=== PATIENT | male | born 1955 | race Caucasian/White ===

== ENCOUNTER 2025-05-17 12:07 | Emergency (ER) | payer MEDICARE ==
[~2025-05-17] VITALS: Ht 175.3 cm; Wt 88.2 kg
[2025-05-17 13:36] LABS: MEAN PLATELET VOLUME 7.4 FL (7.4-10.4); RED CELL DISTRIBUTION WIDTH 13.5 % (11.5-14.5)
[2025-05-17 13:49] LABS: CREATININE 0.74 MG/DL (0.60-1.10); TOTAL CARBON DIOXIDE 24.3 MMOL/L (24-32); eCRCL 96 ML/MIN; eGFR > 90 ML/MIN
[2025-05-17 14:42] VITALS: BP 166/93; PULSE 83; RESP 21; TEMP 98.3; O2SAT 97
--- NOTE | 2025-05-17 14:44 | Physician Documentation ---
History of Present Illness General Chief Complaint: Abdominal Pain Stated Complaint: ABD PAIN Time Seen by MD: 14:33 Mode of Arrival: Ambulatory, Dropped Off History of Present Illness Initial Comments The patient is a 62-year-old male who admits to heavy drinking and presents today with right upper quadrant pain. He has been dry heaving. His last drink was a beer this morning. He tried to quit drinking three weeks ago but his withdrawal symptoms became severe and he took it up again. Medication Reconciliation Allergies: Coded Allergies: No Known Allergies (Unverified , 05/17/25) Review of Systems ROS Constitutional: Denies chills, fatigue, fever, weight gain or weight loss. HEENT: Denies hearing loss, sinus pressure or visual changes. Respiratory: Denies cough, shortness of breath or wheezing. Cardiovascular: Denies chest pain, pain while walking (claudication), edema or palpitations. Gastrointestinal: Denies abdominal pain, blood in stool, constipation, diarrhea, heartburn, loss of appetite, nausea or vomiting. Genitourinary: Denies painful urination (dysuria), excessive amount of urine (polyuria) or urinary frequency. Metabolic/Endocrine: Denies cold intolerance, heat intolerance, excessive thirst (polydipsia) or excessive hunger (polyphagia). Neurological: Tremulous Psychiatric: Anxiety Integumentary: Denies breast discharge, breast lump, hives, mole change(s), rash or skin lesion. Musculoskeletal: Denies back pain, joint pain, joint swelling or neck pain. Hematologic: Denies easily bleeding, easily bruises, lymphedema or issues with blood clots. Immunologic: Denies food allergies or seasonal allergies. Physical Exam Physical Exam Vital Signs: Temperature: 98.3, Source: Oral, Heart Rate: 85, Respiratory Rate: 16, BP: 186/107, Pulse Oximetry: 98, Weight: 88.150 Oxygen Flow Rate: 0 Progress Results/Orders Results/Orders Orders - HUY FRANKLIN MD Ultrasound Of Abdomen (05/17/25 14:38) Lactic,2hr (05/17/25 16:17) Completed Orders - HUY FRANKLIN MD Cbc/Diff (05/17/25 13:14) BMP (05/17/25 13:14) Lipase (05/17/25 13:14) CMP (05/17/25 13:14) Ultrasound Of Abdomen (05/17/25 14:38) LA (05/17/25 14:39) Normal Saline 1000ml (Sodium Chloride 10 (05/17/25 14:40) Lorazepam Tablet (Ativan Tablet) (05/17/25 14:40) Ondansetron Inj. (Zofran 4mg/2ml Vial) (05/17/25 14:45) Ethanol (05/17/25 13:00) Ua W/Microscopic, Cult If Ind (05/17/25 15:36) Medications Received in ER Medications (Trade) Dose Ordered Sig/Orin Route PRN Reason Start Time Stop Time Status Last Admin Dose Admin Sodium Chloride 1,000 ml @ 1,000 mls/hr ONCE ONCE IV 05/17/25 14:40 05/17/25 15:39 DC 05/17/25 14:48 1,000 MLS/HR (Ativan tablet) 2 mg ONCE ONCE PO 05/17/25 14:40 05/17/25 14:43 DC 05/17/25 14:48 2 MG (Zofran 4mg/2ml vial) 4 mg ONCE ONCE IV 05/17/25 14:45 05/17/25 14:46 DC 05/17/25 14:49 4 MG Vital Signs 05/17/25 05/17/25 05/17/25 05/17/25 12:20 13:14 14:22 14:42 Temp 98.3 98.3 98.3 Pulse 78 85 83 Resp 18 16 16 21 B/P (MAP) 182/98 186/107 (133) 166/93 (117) Pulse Ox 97 98 97 O2 Flow Rate 0 0 Laboratory Tests Test 05/17/25 13:00 05/17/25 13:20 05/17/25 15:36 White Blood Count 8.2 Red Blood Count 4.60 L Hemoglobin 16.2 Hematocrit 47.4 Mean Corpuscular Volume 103.0 H Mean Corpuscular Hemoglobin 35.2 H Mean Corpuscular Hemoglobin Concent 34.2 Red Cell Distribution Width 13.5 Platelet Count 260 Mean Platelet Volume 7.4 Neutrophils (%) (Auto) 71.6 Lymphocytes (%) (Auto) 22.6 Monocytes (%) (Auto) 5.0 Eosinophils (%) (Auto) 0.1 Basophils (%) (Auto) 0.7 Neutrophils # (Auto) 5.9 Lymphocytes # (Auto) 1.8 Monocytes # (Auto) 0.4 Eosinophils # (Auto) 0.0 Basophils # (Auto) 0.1 CBC Comment Sodium Level 133 L Potassium Level 4.0 Chloride Level 94 L Carbon Dioxide Level 24.3 Anion Gap 15 Blood Urea Nitrogen 7 Creatinine 0.74 Estimated GFR/1.73 m2 > 90 BUN/Creatinine Ratio 9.5 L Glucose Level 113 H Calcium Level 8.9 Total Bilirubin 0.9 Aspartate Amino Transf (AST/SGOT) 32 Alanine Aminotransferase (ALT/SGPT) 37 Alkaline Phosphatase 73 Total Protein 8.0 Albumin 3.9 Globulin 4.1 Albumin/Globulin Ratio 1.0 L Lipase 62 Chemistry Comments Ethyl Alcohol Level 149 H Lactic Acid Level 3.2 H Urine Specimen Description Cln catch midstream Urine Color Yellow Urine Clarity Clear Urine pH 6.0 Urine Specific Collins 1.020 Urine Protein Trace Urine Glucose (UA) Negative Urine Ketones 15 H Urine Occult Blood Negative Urine Nitrite Negative Urine Bilirubin Negative Urine Urobilinogen 0.2 Urine Leukocyte Esterase Negative Urine RBC 3-10 Urine WBC 0-4 Urine Squamous Epithelial Cells Few Urine Bacteria Few Urine Mucus Moderate Urine Culture Indicated Not ind Volume Urine Centrifuged 10 ml Urine Comment Medical Decision Making Findings This 70-year-old man with a history of alcohol use disorder came in with right upper quadrant pain. Laboratory data and imaging point toward steatosis is the etiology. The patient is going to establish care with a primary provider in his plan, he reports, as to quit drinking. Departure Disposition: 01 HOME / SELF CARE / HOMELESS Impression: Primary Impression: Abdominal pain Additional Impression: Steatosis of liver Condition: Stable Additional Instructions: It is important to see your doctor or primary care provider. Emergency care may be incomplete without proper follow-up. Symptoms sometimes change or new symptoms might arise after you leave the emergency department. It is important that you call your doctor if you become worse in any way, or return to the emergency department. You are strongly urged to follow-up with your physician to assure complete and thorough care. Please call your doctor's office today, and informed them that you were seen in the emergency department, and that you need to be seen immediately for close follow-up. If you do not have a primary care doctor we encourage you to proactively seek a local physician for close follow-up. Consider local clinics, [facility], or [facility]. Prior to discharge we spoke at length concerning symptoms that would merit reevaluation, but please return to the emergency department for any symptoms that are concerning to you, and we will be happy to continue your evaluation and treatment. Please note you can always return to the emergency department if you are having difficulty coordinating close follow-up. If medications were prescribed, you should fill them at your local pharmacy im mediately and take only as prescribed. Bring your new medications to your doctors follow-up visit to discuss any changes that would be necessary. Please check [facility] for any results you did not receive in the Emergency Department: often we are unable to get all your tests back before you leave, and these tests need to be reviewed by your PCP and yourself. You can also call Medical Records if you are unable to access the internet to see [employer]. Return to the emergency department immediately for worsening chest pain, difficulty breathing, sweating, or other concerning emergent symptoms. Referrals: NO PRIMARY CARE PROVIDER (PCP) Education Educated: Patient Educated regarding: diagnosis, treatment, prognosis, need for follow up Signature Scribe Signature: . Attestation: . HUY FRANKLIN MD May 17, 2025 14:44
[2025-05-17] MEDS: normal saline 1000ml 1,000 ML IV ONE (14:48)
[2025-05-17] MEDS: ondansetron/PF 4mg/2ml inj IV ONE (14:49)
[2025-05-17 15:09] LABS: ETHANOL 149 MG/DL (<10)
--- NOTE | 2025-05-17 15:31 | RADIOLOGY REPORT ---
Procedure: US ULTRASOUND OF [facility] Study Date and Requested Time: 05/17/2025 02:51 PM History: RUQ pain Comparison: None Technique: Multiple high resolution tejada-scale images obtained of the right upper quadrant of the abd omen with color Doppler for evaluation of blood flow and vascularity as indicated. Findings: Liver measures 18.2 cm in length, with increased hepatic echogenicity and normal contours. No evidenc e of focal hepatic lesions, intrahepatic or extrahepatic ductal dilatation. Common bile duct measures 0.4 cm in diameter. Gallbladder unremarkable with no evidence of abnormal wall thickening, gallstones, biliary sludge, or pericholecystic fluid. Negative sonographic Sánchez's sign. Pancreas obscured by bowel gas Right kidney measures 12.02 cm in length, with normal contours, echotexture, and cortical thickness. No evidence of hydronephrosis, calculi, cystic or solid renal lesions. Partially visualized inferior vena cava unremarkable. Impression: Mild hepatomegaly with hepatic steatosis.
[2025-05-17 16:09] LABS: LEUKOCYTE ESTERASE ,URINE NEGATIVE (Neg); NITRITES, URINE NEGATIVE (Neg); OCCULT BLOOD,URINE NEGATIVE (Neg)
[2025-05-17 16:11] LABS: UA COLLECTION TYPE CLN CATCH MIDSTREAM
[2025-05-17 16:23] LABS: MUCUS STRANDS MODERATE /LPF (Neg)
[2025-05-17 16:25] LABS: SQUAMOUS EPITHELIAL CELL,UR FEW /LPF (FEW)
[2025-05-17] MEDS ORDERED: CHLO25CA10 PO (17:09)
[2025-05-17] MEDS ORDERED: ONDA-243 PO (17:09)
== END 2025-05-17 17:10 | disposition home or self-care (01) ==
LOC: ER 12:07
DX: K76.0 Fatty (change of) liver, not elsewhere classified (principal)
CPT/HCPCS: 36415; 76700; 80053; 80320; 81001; 83605; 83690; 85025; 96361; 96374; 99285; J2405; J7030